=== PATIENT | male | born 1990 | race Caucasian/White ===

== ENCOUNTER 2018-04-17 22:42 | Emergency (ER) | payer SELFPAY ==
[~2018-04-17] VITALS: Ht 170.2 cm; Wt 81.6 kg
[2018-04-17 22:50] VITALS: Ht 170.2 cm; Wt 81.6 kg
[2018-04-17 23:39] VITALS: BP 140/84
== END 2018-04-17 23:39 | disposition home or self-care (01) ==
LOC: ED 22:42
DX: J11.1 Influenza due to unidentified influenza virus with other respiratory manifestations (principal)